=== PATIENT | male | born 1960 | race Caucasian/White ===

== ENCOUNTER 2020-01-10 08:58 | Outpatient (CLI) | payer BC, OTHER ==
[2020-01-11 11:00] LABS: SARS-CoV-2 MS2 Positive; SARS-CoV-2 N Gene Negative; SARS-CoV-2 S Gene Negative; SARS-CoV-2 by NAA Not Detected (NotDetected); SARS-CoV-2 orf1ab Negative
== END 2020-01-10 08:59 | disposition home or self-care (01) ==
LOC: LABBT 08:58
PROVIDERS: ATTEND Family Medicine
DX: H35.341 Macular cyst, hole, or pseudohole, right eye (principal); Z20.828 Contact with and (suspected) exposure to other viral communicable diseases
CPT/HCPCS: 87635; U0003

== ENCOUNTER 2020-01-15 06:18 | Day surgery (SDC) | payer BC ==
[2020-01-14 14:56] VITALS: BMI 27.3
[2020-01-15] MEDS ORDERED: Midazolam HCl 2 mg/2 ml Vial ONE (06:35)
[2020-01-15] MEDS ORDERED: Fentanyl 100 MCG/2 ML VIAL ONE (06:35)
[2020-01-15] MEDS ORDERED: EPINEPHrine 0.3 MG in Ophthalmic Irrigation Solution 500 ML IRR SCH (06:45)
[2020-01-15] MEDS ORDERED: Phenylephrine 2.5% Ophth Soln 5 ML BOT ONE (07:06)
[2020-01-15] MEDS ORDERED: Cyclopentolate 1% Opth Drop 2 ML BOT ONE (07:06)
[2020-01-15] MEDS ORDERED: Famotidine 20 MG TAB ONE (07:30)
[2020-01-15] MEDS ORDERED: Famotidine/PF 20 mg/2ml Vial ONE (07:31)
[2020-01-15] MEDS ORDERED: Ondansetron PF 4 MG/2 ML Vial ONE (07:31)
--- NOTE | 2020-01-15 10:50 | OP ---
DATE OF PROCEDURE: 01/15/2020 PRINCIPAL PREOPERATIVE DIAGNOSIS: Macular hole, right eye. POSTOPERATIVE DIAGNOSIS: Macular hole, right eye. PROCEDURES PERFORMED: 1. 25-gauge pars plana vitrectomy, right eye. 2. Internal limiting membrane peel, right eye. 3. 15% SF6, right eye. ESTIMATED BLOOD LOSS: None. SPECIMENS REMOVED: None. COMPLICATIONS: None. ANESTHESIA: MAC with sub-Tenon's block. DESCRIPTION OF PROCEDURE: The patient was identified in the preoperative holding area. The correct eye being the right eye was marked for surgery. The patient was taken to the operating room, where MAC anesthesia was induced. The right eye was prepped and draped in usual sterile ophthalmic fashion for surgery. A wire-clip lid speculum was placed. An inferonasal conjunctival peritomy was fashioned with Klever scissors for administration of sub-Tenon's block. The block consisted of 1:1 ratio of 4% lidocaine and 0.75% Marcaine. A total of 5 mL was administered. A standard 25-gauge pars plana vitrectomy platform was fashioned with trocars placed approximately 4 mm from the limbus. The infusion was noted to be within the vitreous cavity prior to being turned on to infusion pressure of 30 mmHg. The light pipe and microvitrector were introduced in the eye under visualization the BIOM viewing system. A careful core vitrectomy was followed by injection of Kenalog. A gentle posterior vitreous detachment was created followed by completion of peripheral shave vitrectomy. Following vitrectomy, ICG dye was used to stain the internal limiting membrane. Using the Chris ILM forceps, the internal limiting membrane was peeled gently in a circumferential fashion about the fovea. The peel extended approximately 2 disc diameters in radius circumferentially. Following peeling, the microvitrector was reintroduced in the eye to remove any residual vitreous debris. A 360-degree scleral depressed exam of the periphery was performed and revealed no defects. An air-fluid exchange performed followed by air-gas exchange with 15% SF6. The cannulas were sequentially removed with suturing required of the supranasal sclerotomy with 8-0 Vicryl suture. Following suturing, all sclerotomies were noted to be gas tight. The subconjunctival Ancef and Kenalog were injected. The wire-clip lid speculum was removed followed by application of TobraDex ophthalmic ointment and a light patch and shield. The patient tolerated the procedure well and was taken to outpatient recovery area in good condition. Job ID: [id number]
[2020-01-15] MEDS ORDERED: Lidocaine 1% PF 5 ML VIAL ONE (12:42)
[2020-01-15] MEDS ORDERED: Maxitrol 0.1% Opth Oint 3.5 GM TUBE ONE (12:42)
[2020-01-15] MEDS ORDERED: Bupivacaine PF 0.75% SDV 10 ML ONE (12:42)
[2020-01-15] MEDS ORDERED: Triamcinolone 40 MG/ML VIAL ONE (12:42)
[2020-01-15] MEDS ORDERED: CEFAZOLIN 1 GM VIAL ONE (12:42)
[2020-01-15] MEDS ORDERED: Lidocaine 4% PF 5 ML AMP ONE (12:42)
[2020-01-15] MEDS ORDERED: Indocyanine Green 25 MG/10 ML VIAL ONE (12:42)
== END 2020-01-15 09:50 | disposition home or self-care (01) ==
LOC: SDC 06:18
PROVIDERS: ATTEND Ophthalmology Retina Specialist
PROC: 08T43ZZ Resection of Right Vitreous, Percutaneous Approach (ICD-10-PCS; principal; 2020-01-15)
PROC: 08NE3ZZ Release Right Retina, Percutaneous Approach (ICD-10-PCS; principal; 2020-01-15)
DX: H35.341 Macular cyst, hole, or pseudohole, right eye (principal); F17.290 Nicotine dependence, other tobacco product, uncomplicated; K21.9 Gastro-esophageal reflux disease without esophagitis; Z79.899 Other long term (current) drug therapy
CPT/HCPCS: 67025; J0171; J0690; J2001; J2250; J2405; J3010; J3301; J3490; S0028

== ENCOUNTER 2020-04-29 10:20 | Day surgery (SDC) | payer BC ==
[2020-04-25 12:25] VITALS: BMI 27.3
[2020-04-29] MEDS ORDERED: Cyclopentolate 1% Ophth Drops 15 ML BOT ONE (10:58)
[2020-04-29] MEDS ORDERED: Phenylephrine 2.5% Ophth Soln 5 ML BOT ONE (10:58)
[2020-04-29] MEDS ORDERED: Fentanyl 100 MCG/2 ML VIAL ONE (11:01)
[2020-04-29] MEDS ORDERED: Midazolam HCl 2 mg/2 ml Vial ONE (11:01)
[2020-04-29] MEDS ORDERED: Lidocaine 1% PF 5 ML VIAL ONE (11:42)
[2020-04-29] MEDS ORDERED: CEFAZOLIN 1 GM VIAL ONE (11:42)
[2020-04-29] MEDS ORDERED: Lidocaine 4% PF 5 ML AMP ONE (11:42)
[2020-04-29] MEDS ORDERED: Bupivacaine PF 0.75% SDV 10 ML ONE (11:42)
[2020-04-29] MEDS ORDERED: Maxitrol 0.1% Opth Oint 3.5 GM TUBE ONE (11:42)
[2020-04-29] MEDS ORDERED: Triamcinolone 40 MG/ML VIAL ONE (11:42)
[2020-04-29] MEDS ORDERED: PROPOFOL 200 MG/20 ML VIAL ONE (11:42)
[2020-04-29] MEDS ORDERED: EPINEPHrine 0.3 MG in Ophthalmic Irrigation Solution 500 ML IRR SCH (11:45)
--- NOTE | 2020-04-29 14:05 | OP ---
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 PROCEDURES PERFORMED: 1. 25-gauge pars plana vitrectomy, right eye. 2. Tractional retinal detachment repair, right eye. 3. Endolaser, right eye. 4. Silicone oil fill, right eye. ESTIMATED BLOOD LOSS: None. SPECIMENS REMOVED: None. COMPLICATIONS: None. ANESTHESIA: MAC with sub-Tenon's block. DESCRIPTION OF PROCEDURE: The patient was identified in the preoperative holding area, where the correct eye being the right eye was marked for surgery. The patient was taken to the operating room, where MAC anesthesia was induced. The right eye was prepped and draped in the usual sterile ophthalmic fashion for surgery. A wire-clip lid speculum was placed. An inferonasal conjunctival peritomy was fashioned with Klever scissors for administration of sub-Tenon's block. The block consisted of 1:1 ratio of 4% lidocaine and 0.75% Marcaine. A total of 5 mL was administered. A standard 25-gauge pars plana vitrectomy platform was fashioned with trocars placed approximately 4 mm from the limbus. The infusion was noted to be within the vitreous cavity prior to being turned on to an infusion pressure of 30 mmHg. The light pipe and microvitrector were introduced in the eye under visualization of the BIOM viewing system. A total combined tractional rhegmatogenous retinal detachment was noted. Defects were noted at approximately 6 o'clock and 11 o'clock. A star fold was noted in the temporal macula. A preexisting macular hole was additionally noted. A peripheral shave vitrectomy was performed with the assistance of Devin taking great care to relieve all vitreous traction off the aforementioned defects. Following vitrectomy, the Chris MAC scrub forceps were utilized to remove the temporal peripheral vitreal retinopathy. Following its gentle removal, the retina was noted to relax significantly. Supratemporal retinotomy was created with the endo cautery followed by opening with a flute needle. The subsequent air-fluid exchange was performed, which allowed for complete flattening of the retina. Endolaser was used to provide barricade around the retinotomy site as well as the aforementioned defects as well as a light 360 degree scleral cerclage in typical fashion with sparing of the 3 o'clock and 9 o'clock meridians. Following endolaser, the flute needle was reintroduced in the eye to remove any residual subretinal fluid. A complete silicone oil fill was subsequently achieved. The cannulas were sequentially removed and all sclerotomies were sutured with 8-0 Vicryl suture. Following suturing, all sclerotomies were noted to be oil tight. Subconjunctival Ancef and Kenalog were injected. The wire-clip lid speculum was removed followed by application of TobraDex ophthalmic ointment and a light patch and shield. The patient tolerated the procedure well, was taken to the outpatient recovery area in good condition. Job ID: [id number]
== END 2020-04-29 14:13 | disposition home or self-care (01) ==
LOC: SDC 10:20
PROVIDERS: ATTEND Ophthalmology Retina Specialist
PROC: 08T43ZZ Resection of Right Vitreous, Percutaneous Approach (ICD-10-PCS; principal; 2020-04-29)
PROC: 08QE3ZZ Repair Right Retina, Percutaneous Approach (ICD-10-PCS; principal; 2020-04-29)
DX: H33.41 Traction detachment of retina, right eye (principal); K21.9 Gastro-esophageal reflux disease without esophagitis; G89.29 Other chronic pain; M54.9 Dorsalgia, unspecified; F17.290 Nicotine dependence, other tobacco product, uncomplicated; Z79.899 Other long term (current) drug therapy
CPT/HCPCS: C1814; J0171; J0690; J2250; J2704; J3010; J3301; J3490

== ENCOUNTER 2020-07-10 09:33 | Outpatient (CLI) | payer BC ==
[2020-04-25 23:20] LABS: SARS-CoV-2 PCR by NAA Not Detected (NotDetected)
[2020-07-10 22:12] LABS: SARS-CoV-2 PCR by NAA Not Detected (NotDetected)
== END 2020-07-10 09:34 ==
LOC: LABBT 09:33
PROVIDERS: ATTEND Ophthalmology Retina Specialist
DX: Z01.812 Encounter for preprocedural laboratory examination (principal); Z20.822 Contact with and (suspected) exposure to COVID-19
CPT/HCPCS: 87635; U0003; U0005

== ENCOUNTER 2020-07-15 11:00 | Day surgery (SDC) | payer BC ==
[2020-07-14 14:28] VITALS: BMI 26.9
[~2020-07-15 11:00] MED LIST: EPINEPHrine 0.3 MG in Ophthalmic Irrigation Solution 500 ML IRR SCH; Fentanyl 100 MCG/2 ML VIAL ONE; Midazolam HCl 2 mg/2 ml Vial ONE
[2020-07-15] MEDS ORDERED: Cyclopentolate 1% Ophth Drops 15 ML BOT ONE (11:22)
[2020-07-15] MEDS ORDERED: Phenylephrine 2.5% Ophth Soln 5 ML BOT ONE (11:22)
[2020-07-15] MEDS ORDERED: Lidocaine 1% PF 5 ML VIAL ONE (12:22)
[2020-07-15] MEDS ORDERED: Bupivacaine PF 0.75% SDV 10 ML ONE (12:22)
[2020-07-15] MEDS ORDERED: Lidocaine 4% PF 5 ML AMP ONE (12:22)
[2020-07-15] MEDS ORDERED: Triamcinolone 40 MG/ML VIAL ONE (12:22)
[2020-07-15] MEDS ORDERED: Maxitrol 0.1% Opth Oint 3.5 GM TUBE ONE (12:22)
[2020-07-15] MEDS ORDERED: CEFAZOLIN 1 GM VIAL ONE (12:22)
== END 2020-07-15 13:50 | disposition home or self-care (01) ==
LOC: SDC 11:00
PROVIDERS: ATTEND Ophthalmology Retina Specialist
PROC: 08T43ZZ Resection of Right Vitreous, Percutaneous Approach (ICD-10-PCS; principal; 2020-07-15)
DX: H33.41 Traction detachment of retina, right eye (principal); H33.021 Retinal detachment with multiple breaks, right eye
CPT/HCPCS: C1814; J0171; J0690; J2250; J3010; J3301; J3490

== ENCOUNTER 2020-10-28 09:00 | Day surgery (SDC) | payer BC ==
[2020-10-24 12:42] VITALS: BMI 27.3
[~2020-10-28 09:00] MED LIST changes: -Fentanyl 100 MCG/2 ML VIAL ONE; -Midazolam HCl 2 mg/2 ml Vial ONE
[2020-10-28] MEDS ORDERED: Cyclopentolate 1% Opth Drop 2 ML BOT ONE (09:22)
[2020-10-28] MEDS ORDERED: Phenylephrine 2.5% Ophth Soln 5 ML BOT ONE (09:22)
[2020-10-28] MEDS ORDERED: Fentanyl 250 MCG/5 ML VIAL ONE (10:30)
[2020-10-28] MEDS ORDERED: Midazolam HCl 2 mg/2 ml Vial ONE (10:30)
[2020-10-28] MEDS ORDERED: Triamcinolone 40 MG/ML VIAL ONE (10:41)
[2020-10-28] MEDS ORDERED: Lidocaine 4% PF 5 ML AMP ONE (10:41)
[2020-10-28] MEDS ORDERED: Lidocaine 1% PF 5 ML VIAL ONE (10:41)
[2020-10-28] MEDS ORDERED: Bupivacaine PF 0.75% SDV 10 ML ONE (10:41)
[2020-10-28] MEDS ORDERED: Maxitrol 0.1% Opth Oint 3.5 GM TUBE ONE (10:41)
[2020-10-28] MEDS ORDERED: PROPOFOL 200 MG/20 ML VIAL ONE (10:41)
[2020-10-28] MEDS ORDERED: CEFAZOLIN 1 GM VIAL ONE (10:41)
[2020-10-28] MEDS ORDERED: Meperidine HCl/PF 25 MG/ML VIAL ONE (10:47)
== END 2020-10-28 12:00 | disposition home or self-care (01) ==
LOC: SDC 09:00
PROVIDERS: ATTEND Ophthalmology Retina Specialist
PROC: 08T43ZZ Resection of Right Vitreous, Percutaneous Approach (ICD-10-PCS; principal; 2020-10-28)
DX: H43.391 Other vitreous opacities, right eye (principal); K21.9 Gastro-esophageal reflux disease without esophagitis; G89.29 Other chronic pain; M54.9 Dorsalgia, unspecified; R20.0 Anesthesia of skin; R53.1 Weakness; Z96.642 Presence of left artificial hip joint; Z87.19 Personal history of other diseases of the digestive system; Z98.890 Other specified postprocedural states; Z79.899 Other long term (current) drug therapy
CPT/HCPCS: J0171; J0690; J2175; J2250; J2704; J3010; J3301; J3490